=== PATIENT | female | born 1995 | race Caucasian/White ===

== ENCOUNTER 2019-06-12 08:07 | Outpatient (CLI) | payer OTHER ==
--- NOTE | 2019-06-12 10:30 | BD ---
DEXA BONE MINERAL DENSITY STUDY: HISTORY: Celiac disease. Osteoporosis screening. COMPARISON: None. FINDINGS: LUMBAR SPINE BMD (g/cm2) T-SCORE Z-SCORE L1 0.998 0.1 0.2 L2 0.953 -0.7 -0.5 L3 1.002 -0.7 -0.6 L4 0.984 -0.7 -0.5 TOTAL 0.984 -0.6 -0.4 FEMORAL NECK 0.868 0.2 0.2 TOTAL LEFT HIP 0.984 0.4 0.4 WHO CLASSIFICATION: Normal. IMPRESSION: Normal bone mineral density. POS: TPC
== END 2019-06-12 08:08 | disposition home or self-care (01) ==
LOC: BICMAMMO 08:07
PROVIDERS: ATTEND Physician Assistant Medical
DX: Z13.820 Encounter for screening for osteoporosis (principal); K90.0 Celiac disease
CPT/HCPCS: 77080